=== PATIENT | male | born 1965 | race African-American/Black ===

== ENCOUNTER 2018-08-28 15:49 | Emergency (ER) | payer OTHER ==
[~2018-08-28] VITALS: Ht 182.9 cm; Wt 83.9 kg
[2018-08-28 16:07] VITALS: BP 116/75
--- NOTE | 2018-08-28 16:19 | PHYS DOC ---
Past History Past Medical History: GERD, Hypertension Alcohol Use: None Drug Use: None Adult General Chief Complaint Chief Complaint: FOOT INJURY PAIN HPI HPI 53-year-old male presents with left plantar foot pain. Patient believes that he may have a wart. He knows about 4 days ago and the pain has been increasing. He has not had one in 30 years. It is along the arch of the left foot. He is hoping that we can perform a treatment in the ED. He denies any other concerns or complaints. Review of Systems Review of Systems Constitutional: Denies fever or chills [] Eyes: Denies change in visual acuity, redness, or eye pain [] HENT: Denies nasal congestion or sore throat [] Respiratory: Denies cough or shortness of breath [] Cardiovascular: No additional information not addressed in HPI [] GI: Denies abdominal pain, nausea, vomiting, bloody stools or diarrhea [] : Denies dysuria or hematuria [] Musculoskeletal: Denies back pain or joint pain [] Integument: Left foot wart[] Neurologic: Denies headache, focal weakness or sensory changes [] Endocrine: Denies polyuria or polydipsia [] All other systems were reviewed and found to be within normal limits, except as documented in this note. Physical Exam Physical Exam Constitutional: Well developed, well nourished, no acute distress, non-toxic appearance. [] HENT: Normocephalic, atraumatic, bilateral external ears normal, oropharynx moist, no oral exudates, nose normal. [] Eyes: PERRLA, EOMI, conjunctiva normal, no discharge. [] Neck: Normal range of motion, no tenderness, supple, no stridor. [] Cardiovascular:Heart rate regular rhythm, no murmur [] Lungs & Thorax: Bilateral breath sounds clear to auscultation [] Abdomen: Bowel sounds normal, soft, no tenderness, no masses, no pulsatile masses. [] Skin: Small plantar wart of the left foot along the medial plantar arch[] Back: No tenderness, no CVA tenderness. [] Extremities: No tenderness, no cyanosis, no clubbing, ROM intact, no edema. [] Neurologic: Alert and oriented X 3, normal motor function, normal sensory function, no focal deficits noted. [] Psychologic: Affect normal, judgement normal, mood normal. [] Current Patient Data Vital Signs Vital Signs Date Time Temp Pulse Resp B/P (MAP) Pulse Ox O2 Delivery O2 Flow Rate FiO2 08/28/18 16:07 98.3 64 16 98 EKG EKG [] Radiology/Procedures Radiology/Procedures [] Course & Med Decision Making Course & Med Decision Making Pertinent Labs and Imaging studies reviewed. (See chart for details) The patient appears to have a plantar wart of the left foot. I do not have equipment in the emergency room to treat this directly. I have advised patient consider [id number] treatment for follow-up with his PCP for an office cryotherapy. He is stable for discharge at this time. [] Dragon Disclaimer Dragon Disclaimer This electronic medical record was generated, in whole or in part, using a voice recognition dictation system. Departure Departure: Impression: Primary Impression: Plantar wart, left foot Disposition: HOME, SELF-CARE Condition: STABLE Referrals: NOEL NICHOLE DO (PCP) Patient Instructions: Plantar Warts, [id number] ALEXIS ESPINOZA DO August 28, 2018 16:19
== END 2018-08-28 16:24 | disposition home or self-care (01) ==
LOC: ER 15:49
DX: B07.0 Plantar wart (principal); K21.9 Gastro-esophageal reflux disease without esophagitis; I10 Essential (primary) hypertension
CPT/HCPCS: 99281

== ENCOUNTER → 2020-02-02 | Outpatient (CLI) | payer OTHER ==
[~2020-02-02] MED LIST: IOHEXOL 300 MG/ML 75 ML VIAL. IV ONE
--- NOTE | 2020-02-02 15:33 | RAD ---
PQRS Compliance Statement: One or more of the following individualized dose reduction techniques were utilized for this examination: 1. Automated exposure control 2. Adjustment of the mA and/or kV according to patient size 3. Use of iterative reconstruction technique CT CHEST WO/W CONTRAST Clinical Indication: Reason: IRREGULAR SHAPED PULMONARY NODULES, right middle lobe and superior segment of right lower lobe. Hilar and mediastinal lymphadenopathy. Comparison: None available. Technique: Helical CT imaging of the chest is performed before and after 75 cc Omnipaque 300 IV contrast. Findings: Thyroid is symmetric. There is no axillary adenopathy. There is mediastinal and bilateral hilar adenopathy. For example there is a 1.5 cm right paratracheal lymph node. 1.3 cm AP window lymph node. 1.4 cm left hilar lymph node, image 57. 1.4 cm right hilar lymph node, image 57. Great vessels are normal caliber. No central pulmonary embolus. No thoracic aortic dissection. Cardiac size is normal, no pericardial effusion. The central airways are patent. There is a 10 x 6 mm mildly spiculated subsolid nodule in the right middle lobe, image 72. Solid component measures approximately 6 x 2 mm. Subpleural nodule in the right middle lobe measures 8 x 5 mm. There are several tiny subpleural densities in the anterolateral left upper lobe that may be due to scarring. There are several other sub-5 mm noncalcified pulmonary nodules in the right lung, for example images 23, 47, 52, 56, and 59 There is bilobed cyst versus 2 adjacent cysts in the upper pole of the right kidney that do not require follow-up. There is no hydronephrosis. 2 mm nonobstructing left renal calculus. No acute bone abnormality. IMPRESSION: 1. There are several subcentimeter right lung pulmonary nodules. The most suspicious is a mildly spiculated subsolid nodule in the right middle lobe. If comparison to prior imaging is not possible would recommend annual CT chest to document 5 years of stability. 2. Mediastinal and bilateral hilar adenopathy. Differential considerations for constellation of findings would include sarcoidosis, atypical infections such as nontuberculous mycobacterial infection, lymphoma, and lung malignancy. 3. Nonobstructing left renal calculus. Electronically signed by: Darion Johnston MD (02/02/2020 3:30 PM) [id number]
== END ==
LOC: CT 08:53
PROVIDERS: ATTEND Nurse Practitioner Family
DX: R91.1 Solitary pulmonary nodule (principal); J98.4 Other disorders of lung; N20.0 Calculus of kidney; N28.1 Cyst of kidney, acquired
CPT/HCPCS: 71270; Q9967

== ENCOUNTER 2020-06-06 14:12 | Emergency (ER) | payer OTHER ==
[~2020-06-06] VITALS: Ht 177.8 cm; Wt 84.0 kg
[2020-06-06 14:16] VITALS: BP 137/94
--- NOTE | 2020-06-06 14:53 | EKG ---
[address] [address] Test Date: 2020-06-06 Test Time: 14:17:35 Pat Name: DEBRA BANSAL Department: Room: Gender: M [employer] Technician: : 1965 Requested By: ALEX PHILIP Order Number: [id number] Reading MD: Measurements Intervals [place] Rate: 65 P: CA: QRS: 45 QRSD: 92 T: 10 QT: 374 QTc: 394 Interpretive Statements ATRIAL FLUTTER ABNORMAL ECG RI6.02 No previous ECG available for comparison
[2020-06-06 14:55] LABS: BASO % 1 % (0-3); EOS # 0.2 x10^3/uL (0.0-0.7); EOS % 6 % (0-3); HEMATOCRIT 41.1 % (39.0-53.0); HEMOGLOBIN 13.5 g/dL (13.0-17.5); LYMPH # 0.9 x10^3/uL (1.0-4.8); LYMPH % 35 % (24-48); MEAN CORPUSCULAR HEMOGLOBIN 31 pg (25-35); MEAN CORPUSCULAR HGB CONC 33 g/dL (31-37); MEAN CORPUSCULAR VOLUME 95 fL (79-100); MONO # 0.4 x10^3/uL (0.0-1.1); MONO % 14 % (0-9); NEUT # 1.2 x10^3uL (1.8-7.7); NEUT % 44 % (31-73); PLATELET COUNT 142 x10^3/uL (140-400); RED BLOOD COUNT 4.33 x10^6/uL (4.30-5.70); RED CELL DISTRIBUTION WIDTH 13.2 % (11.5-14.5); WHITE BLOOD COUNT 2.7 x10^3/uL (4.0-11.0)
--- NOTE | 2020-06-06 14:59 | RAD ---
INDICATION: Reason: palpatations / Spl. Instructions: / History: COMPARISON: February 02, 2020 FINDINGS: Single view of chest obtained. Enlarged cardiomediastinal silhouette. Fullness of the bilateral pulmonary hilum. No definite new reg ion of airspace consolidation. No gross osseous destructive lesion. IMPRESSION: * There is repeat demonstration of fullness of the bilateral pulmonary hilum which could be from the patient's previously seen lymphadenopathy in the area. * No definite new region of consolidation. Electronically signed by: Flo Zabala MD (06/06/2020 2:56 PM) [id number]
[2020-06-06 15:05] LABS: CREATININE 1.1 mg/dL (0.7-1.3); GFR 84.7; POTASSIUM 3.5 mmol/L (3.5-5.1)
--- NOTE | 2020-06-06 15:43 | PHYS DOC ---
Past History Past Medical History: GERD, High Cholesterol, Hypertension, Kidney Stones Past Surgical History: Other Additional Past Surgical Histo: STENTS FOR STONES Alcohol Use: None Drug Use: None General Adult EDM: Chief Complaint: Palpitations HPI: HPI: Patient is a 55-year-old male who presents with heart palpitations while working out. Patient states his is [employer] watch said his heart rate was 140s while resting. The patient decided to come in to be checked out. Patient denies chest pain, shortness of breath, heart palpitations. Patient has history of hypertension, high cholesterol. Patient states "my mom of heart attack at 39, so I was worried something might be medically wrong". Review of Systems: Review of Systems: Constitutional: Denies fever or chills Eyes: Denies change in visual acuity HENT: Denies nasal congestion or sore throat Respiratory: Denies cough or shortness of breath Cardiovascular: Denies chest pain or edema, reports heart palpitations GI: Denies abdominal pain, nausea, vomiting, bloody stools or diarrhea : Denies dysuria Musculoskeletal: Denies back pain or joint pain Integument: Denies rash Neurologic: Denies headache, focal weakness or sensory changes Endocrine: Denies polyuria or polydipsia Lymphatic: Denies swollen glands Psychiatric: Denies depression or anxiety Allergies: Allergies: Allergies Coded Allergies Type Severity Reaction Last Updated Verified Penicillins Allergy Unknown 02/02/20 Yes Physical Exam: PE: Constitutional: Well developed, well nourished, no acute distress, non-toxic appearance. [] HENT: Normocephalic, atraumatic, bilateral external ears normal, oropharynx m oist, no oral exudates, nose normal. [] Eyes: PERRLA, EOMI, conjunctiva normal, no discharge. [] Neck: Normal range of motion, no tenderness, supple, no stridor. [] Cardiovascular:Heart rate regular rhythm, no murmur [] Lungs & Thorax: Bilateral breath sounds clear to auscultation [] Abdomen: Bowel sounds normal, soft, no tenderness, no masses, no pulsatile masses. [] Skin: Warm, dry, no erythema, no rash. [] Back: No tenderness, no CVA tenderness. [] Extremities: No tenderness, no cyanosis, no clubbing, ROM intact, no edema. [] Neurologic: Alert and oriented X 3, normal motor function, normal sensory function, no focal deficits noted. [] Psychologic: Affect normal, judgement normal, mood normal. [] Current Patient Data: Labs: Laboratory Tests Test 06/06/20 14:30 White Blood Count 2.7 x10^3/uL (4.0-11.0) L Red Blood Count 4.33 x10^6/uL (4.30-5.70) Hemoglobin 13.5 g/dL (13.0-17.5) Hematocrit 41.1 % (39.0-53.0) Mean Corpuscular Volume 95 fL (79-100) Mean Corpuscular Hemoglobin 31 pg (25-35) Mean Corpuscular Hemoglobin Concent 33 g/dL (31-37) Red Cell Distribution Width 13.2 % (11.5-14.5) Platelet Count 142 x10^3/uL (140-400) Neutrophils (%) (Auto) 44 % (31-73) Lymphocytes (%) (Auto) 35 % (24-48) Monocytes (%) (Auto) 14 % (0-9) H Eosinophils (%) (Auto) 6 % (0-3) H Basophils (%) (Auto) 1 % (0-3) Neutrophils # (Auto) 1.2 x10^3uL (1.8-7.7) L Lymphocytes # (Auto) 0.9 x10^3/uL (1.0-4.8) L Monocytes # (Auto) 0.4 x10^3/uL (0.0-1.1) Eosinophils # (Auto) 0.2 x10^3/uL (0.0-0.7) Basophils # (Auto) 0.0 x10^3/uL (0.0-0.2) Sodium Level 142 mmol/L (136-145) Potassium Level 3.5 mmol/L (3.5-5.1) Chloride Level 106 mmol/L (98-107) Carbon Dioxide Level 29 mmol/L (21-32) Anion Gap 7 (6-14) Blood Urea Nitrogen 14 mg/dL (8-26) Creatinine 1.1 mg/dL (0.7-1.3) Estimated GFR (Cockcroft-Gault) 84.7 Glucose Level 86 mg/dL (70-99) Calcium Level 9.0 mg/dL (8.5-10.1) Troponin I Quantitative < 0.017 ng/mL (0-0.055) Vital Signs: Vital Signs Date Time Temp Pulse Resp B/P (MAP) Pulse Ox O2 Delivery O2 Flow Rate FiO2 06/06/20 14:16 97.1 62 18 137/94 (108) 100 Room Air EKG: EKG: Sinus rhythm, heart rate 65 bpm. [] Radiology/Procedures: Radiology/Procedures: []INDICATION: Reason: palpatations / Spl. Instructions: / History: COMPARISON: February 02, 2020 FINDINGS: Single view of chest obtained. Enlarged cardiomediastinal silhouette. Fullness of the bilateral pulmonary hilum. No definite new region of airspace consolidation. No gross osseous destructive lesion. IMPRESSION: * There is repeat demonstration of fullness of the bilateral pulmonary hilum which could be from the patient's previously seen lymphadenopathy in the area. * No definite new region of consolidation. Electronically signed by: Flo Zabala MD (06/06/2020 2:56 PM) [id number] Heart Score: HEART Score for Chest Pain: HEART Score for Chest Pain Response (Comments) Value History Moderately Suspicious 1 ECG Normal 0 Age >45 - < 65 1 Risk Factors 1 or 2 Risk Factors 1 Troponin < Normal Limit 0 Total 3 Risk Factors: Risk Factors: DM, Current or recent (<one month) smoker, HTN, HLP, family history of CAD, obesity. Risk Scores: Score 0 - 3: 2.5% MACE over next 6 weeks - Discharge Home Score 4 - 6: 20.3% MACE over next 6 weeks - Admit for Clinical Observation Score 7 - 10: 72.7% MACE over next 6 weeks - Early Invasive Strategies Course & Med Decision Making: Course & Med Decision Making Pertinent Labs and Imaging studies reviewed. (See chart for details) []Patient is a 55-year-old male who presents with heart palpitations while working out. Patient states his is [employer] watch said his heart rate was 140s while resting. The patient decided to come in to be checked out. Patient denies chest pain, shortness of breath, heart palpitations. Patient has history of hypertension, high cholesterol. Patient states "my mom of heart attack at 39, so I was worried something might be medically wrong". EKG normal sinus rhythm. Heart rate 70. Chest x-ray is negative for any acute abnormalities. Lab work is unremarkable. Patient is okay to discharge to home. Patient to follow-up with PCP. Patient to return to emergency room with worsening symptoms or concerns. Heart score of 3. Troponin negative. Dragon Disclaimer: Conner Disclaimer: This electronic medical record was generated, in whole or in part, using a voice recognition dictation system. Departure Departure: Impression: Primary Impression: Heart palpitations Disposition: 01 DC HOME SELF CARE/HOMELESS Condition: GOOD Referrals: NOEL NICHOLE DO (PCP) Patient Instructions: Palpitations, [id number] Additional Instructions: You were seen in the emergency room today for heart palpitations after working out. Your symptoms had resolved upon arrival to the emergency room. All of your lab work was unremarkable. Please return to the emergency room with worsening symptoms or concerns. Otherwise follow-up with your PCP. EMERGENCY DEPARTMENT GENERAL DISCHARGE INSTRUCTIONS Thank you for coming to [facility] (ED) today and trusting us with you care. We trust that you had a positivie experience in our Emergency Department. If you wish to speak to the department management, you may call the director at [phone]. YOUR FOLLOW UP INSTRUCTIONS ARE FOLLOWS: 1. Do you have a private Doctor? If you do not have a private doctor, please ask for a resource list of physicians or clinics that may be able to assist you with follo w up care. 2. The Emergency Physician has interpreted your x-rays. The X-Ray specialist will also review them. If there is a change in the findings, you will be notified in 48 hours when at all possible. 3. A lab test or culture has been done, your results will be reviewed and you will be notified if you need a change in treatment. ADDITIONAL INSTRUCTIONS AND INFORMATION: 1. Your care today has been supervised by a physician who is specially trained in emergency care. Many problems require more than one evaluation for a complete diagnosis and treatment. We recommend that you schedule your follow up appointment as rec ommended to ensure complete treatment of you illness or injury. If you are unable to obtain follow up care and continue to have a problem, or if your condition worsens, we recommend that you return to the ED. 2. We are not able to safely determine your condition over the phone nor are we able to give sound medical advice over the phone. For these safety reasons, if you call for medical advice we will ask you to come to the ED for further evaluation. 3. If you have any questions regarding these discharge instructions please call the ED at [phone]. SAFETY INFORMATION: In the interest of safety, wellness, and injury prevention; we encourage you to wear your sealbelt, if you smoke; quite smoking, and we encourage family to use a protective helmet for bicycling and other sporting events that present an increased risk for head injury. IF YOUR SYMPTOMS WORSEN OR NEW SYMPTOMS DEVELOP, OR YOU HAVE CONCERNS ABOUT YOUR CONDITION; OR IF YOUR CONDITION WORSENS WHILE YOU ARE WAITING FOR YOUR FOLLOW UP APPOINTMENT; EITHER CONTACT YOUR PRIMARY CARE DOCTOR, THE PHYSICIAN WHOSE NAME AND NUMBER YOU WERE GIVEN, OR RETURN TO THE ED IMMEDIATELY. ALEX PHILIP APRN Jun 06, 2020 15:43
== END 2020-06-06 16:35 | disposition home or self-care (01) ==
LOC: ER 14:12
DX: R00.2 Palpitations (principal); K21.9 Gastro-esophageal reflux disease without esophagitis; E78.00 Pure hypercholesterolemia, unspecified; I10 Essential (primary) hypertension; Z87.442 Personal history of urinary calculi; Z88.0 Allergy status to penicillin
CPT/HCPCS: 36415; 71045; 80048; 84484; 85025; 93005; 99285